=== PATIENT | female | born 1985 | race Caucasian/White ===

== ENCOUNTER 2016-11-16 21:02 | Emergency (ER) | payer OTHER ==
[2016-11-16 21:10] VITALS: BP 116/65; PULSE 71; TEMP 98; BMI 28.3
[2016-11-16] MEDS ORDERED: ALBUTEROL SO4 2.5/IPRATROPIUM 0.5 INH SOL 3 ML VIAL.NEB. NEB ONE ×2 (21:10→21:27)
--- NOTE | 2016-11-16 21:10 | PDOC ---
Rapid Medical Evaluation Chief Complaint: Asthma Time Seen by Provider: 11/16/16 21:06 Medical Evaluation: 11/16/16 21:07 I have performed a brief in-person evaluation of this patient. The patient presents with a chief complaint of:cough shortness of breath Pertinent physical exam findings: coughing , wheezing I have ordered the following:duoneb, urine The patient will proceed to the ED for further evaluation.
[2016-11-16] MEDS ORDERED: DEXAMETHASONE LIQUID 0.5 MG/5 ML 240 ML BULK BOTTLE PO ONE (22:40)
[2016-11-16] MEDS ORDERED: DEXAMETHASONE 4 MG TABLET (FP) ONE (22:42)
--- NOTE | 2016-11-16 22:43 | PDOC ---
History of Present Illness - General Chief Complaint: Asthma Stated Complaint: DIFF. BREATHING Time Seen by Provider: 11/16/16 21:06 - History of Present Illness Initial Comments: 11/16/16 22:40 CHIEF COMPLAINT: Shortness of breath HISTORY OF PRESENT ILLNESS: 89-year-old female with history of asthma presents to [facility] with shortness of breath since this afternoon. Patient states that she completed a course of prednisone last week. Patient reports that she sees a band saw operator in [place] and "is on steroids almost every other week." She was given nebulizer in triage and at this time states she is feeling better but her chest still feels a little bit tight and "I always get like this, I feel better after the nebulizer but then a few hours later. I feel the same with wheezing and everything again." SOCIAL HISTORY: Denies tobacco, alcohol, illicit drug use. SURGICAL HISTORY: Denies ALLERGIES: No known drug allergies REVIEW OF SYSTEMS General/Constitutional: Denies fever or chills. Denies weakness, weight change. HEENT: Denies change in vision. Denies ear pain or discharge. Denies sore throat. Cardiovascular: Denies chest pain or shortness of breath. Respiratory: Denies cough, wheezing, or hemoptysis. Gastrointestinal: Denies nausea, vomiting, diarrhea or constipation. Denies rectal bleeding. Genitourinary: Denies dysuria, frequency, or change in urination. Musculoskeletal: Denies joint or muscle swelling or pain. Denies neck or back pain. Skin and breasts: Denies rash or easy bruising. PHYSICAL EXAM General Appearance: Well-appearing, appropriately dressed. No apparent distress , no intoxication. HEENT: EOMI, PERRLA, normal ENT inspection, normal voice, TMs normal, pharynx normal. No conjunctival pallor. No photophobia, scleral icterus. Neck: Supple. Trachea midline. No tenderness, rigidity, carotid bruit, stridor , lymphadenopathy, or thyromegaly. Respiratory/Chest: Lungs CTAB. No shortness of breath, chest tenderness, respiratory distress, accessory muscle use. No crackles, rales, rhonchi, stridor , wheezing, dullness Cardiovascular: RRR. S1, S2. No JVD, murmur, bradycardia, tachycardia. Vascular Pulses: Dorsalis-Pedis (R): 2+, Dorsalis-Pedis (L): 2+ Gastrointestinal/Abdominal: Normal bowel sounds. Abdomen soft, non-distended. No tenderness or rebound tenderness. No organomegaly, pulsatile mass, guarding , hernia, hepatomegaly, splenomegaly. Lymphatic: No adenopathy, tenderness. Musculoskeletal/Extremities: Normal inspection. FROM of all extremities, normal capillary refill. Pelvis Stable. No CVA tenderness. No tenderness to extremities, pedal edema, swelling, erythema or deformity. Integumentary: Appropriate color, dry, warm. No cyanosis, erythema, jaundice or rash Neurologic: breast worker II-XII intact. Fully oriented, alert. Appropriate mood/affect. Motor strength 5/5. No appreciable EOM palsy, facial droop or sensory deficit. Past History - Past Medical History Allergies/Adverse Reactions: Allergies Allergy/AdvReac Type Severity Reaction Status Date / Time No Known Allergies Allergy Verified 11/16/16 21:08 Asthma: Yes - Psycho/Social/Smoking Cessation Hx Suicidal Ideation: No Smoking History: Never smoked *Physical Exam - Vital Signs Last Vital Signs Temp Pulse Resp BP Pulse Ox 98 F 71 20 116/65 99 11/16/16 21:08 11/16/16 21:08 11/16/16 21:08 11/16/16 21:08 11/16/16 21:08 ED Treatment Course - Medications Given in the ED: ED Medications Discontinued Medications Generic Name Dose Route Start Last Admin Trade Name Freq PRN Reason Stop Dose Admin Albuterol/Ipratropium 1 amp 11/16/16 21:10 11/16/16 21:12 Duoneb - NEB 11/16/16 21:11 1 amp ONCE ONE Administration Albuterol/Ipratropium 1 amp 11/16/16 21:27 11/16/16 21:46 Duoneb - NEB 11/16/16 21:28 1 amp ONCE ONE Administration Medical Decision Making - Medical Decision Making 11/16/16 21:41 31 yo F with hx of asthma presents to fast track with SOB since today. -duoneb x 2 -10 mg Decadron 11/16/16 22:42 Patient reassessed; patient is CTAB at this time, speaking in full sentences to both me and boyfriend at bedside. However, patient insists on getting CXR. -Urine preg -CXR Will transfer to main ED for further evaluation. Signout given to MD Benz.
--- NOTE | 2016-11-17 00:08 | PDOC ---
*Physical Exam - Vital Signs Last Vital Signs Temp Pulse Resp BP Pulse Ox 98 F 71 20 116/65 99 11/16/16 21:08 11/16/16 21:08 11/16/16 21:08 11/16/16 21:08 11/16/16 21:08 ED Treatment Course - Medications Given in the ED: ED Medications Discontinued Medications Generic Name Dose Route Start Last Admin Trade Name Freq PRN Reason Stop Dose Admin Albuterol/Ipratropium 1 amp 11/16/16 21:10 11/16/16 21:12 Duoneb - NEB 11/16/16 21:11 1 amp ONCE ONE Administration Albuterol/Ipratropium 1 amp 11/16/16 21:27 11/16/16 21:46 Duoneb - NEB 11/16/16 21:28 1 amp ONCE ONE Administration Dexamethasone 10 mg 11/16/16 22:40 11/16/16 22:46 Decadron Liquid - PO 11/16/16 22:41 10 mg ONCE ONE Administration Medical Decision Making - Medical Decision Making 11/17/16 00:04 Pt seen by the Advanced Practice Provider under my direct supervision Pt interviewed and examined Ancillary studies reviewed I agree with plan as outlined by the Advanced Practice Provider OIL RAG WASHER Fifi Patient was reassessed. Her lung sounds cleared with the nebulizers and dexamethasone. Patient is going to follow up with her route delivery driver and [facility]. We'll also give her referral to our route delivery driver. Return precautions given. Patient reports feeling better like to go home. Chest xray reviewed. No acute findings. I discussed the physical exam findings, ancillary test results and final diagnoses with the patient. I answered all of the patient's questions. The patient was satisfied with the care received and felt comfortable with the discharge plan and treatment plan. The patient will call their primary care physician within 24 hours to arrange follow-up and will return to the Emergency Department with any new, persistant or worsening symptoms. *DC/Admit/Observation/Transfer Diagnosis at time of Disposition: Asthma Qualifiers: Asthma severity: unspecified severity Asthma complication type: with acute exacerbation Qualified Code(s): J45.901 - Unspecified asthma with (acute) exacerbation - Discharge Dispostion Disposition: HOME Condition at time of disposition: Improved Admit: No - Prescriptions Prescriptions: Benzonatate [Tessalon Pearls -] 100 mg PO TID PRN #21 capsule PRN Reason: Cough Albuterol Sulfate Inhaler - [Ventolin HFA Inhaler -] 1 - 2 inh PO Q4H PRN #1 inhaler PRN Reason: Wheezing - Patient Instructions Printed Discharge Instructions: Asthma -- Adult Additional Instructions: Please take 2 puffs of albuterol every 4 hours as needed for wheezing. Please follow up with your doctor. You have received dexamethasone today. You may try the tessalon pearles for your cough as prescribed.
== END 2016-11-17 00:21 | disposition home or self-care (01) ==
LOC: JERFT 21:02 → JER 21:02
PROC: 3E0F7GC Introduction of Other Therapeutic Substance into Respiratory Tract, Via Natural or Artificial Opening (ICD-10-PCS; principal; 2016-11-16)
PROC: 3E0F7GC Introduction of Other Therapeutic Substance into Respiratory Tract, Via Natural or Artificial Opening (ICD-10-PCS; 2016-11-16)
DX: J45.901 Unspecified asthma with (acute) exacerbation (principal)
CPT/HCPCS: 71020-TC; 94640; 99281-25